=== PATIENT | female | born 1930 | race Caucasian/White ===

== ENCOUNTER 2018-02-27 13:18 | Emergency (ER) | payer OTHER ==
[~2018-02-27] VITALS: Ht 157.5 cm; Wt 56.2 kg
[~2018-02-27 13:18] MED LIST: ACET-1156 PO; ALBU0.084 NEB; ALBUAER3 IN; ALUM1SUS16 PO; ASPI81TA27 PO; ATOR1TAB PO; BISA-4 PR; CALC-315 PO; DOCU-137 PO; INSLANTI SC; INSLISPI SC; LOPE2TAB78 PO; MAGNSUS71 PO; MAX35OO OP; MULT-470 PO
[2018-02-27] MEDS ORDERED: DEXTROSE (50%) 50ML SYRG IV ONE (14:00)
[2018-02-27 14:53] LABS: Basophils # (auto) 0.1 uL; Basophils % (auto) 0.9 % (0.0-2.0); Eosinophils # (auto) 0.1 uL; Eosinophils % (auto) 0.6 % (0.0-7.0); Hematocrit 45.4 % (36.0-46.0); Hemoglobin 15.2 g/dL (12.2-16.2); Lymphocytes # (auto) 0.8 uL; Lymphocytes % (auto) 8.1 % (10.0-50.0); Mean Corpuscular Hemoglobin 31.8 pg (28.0-32.0); Mean Corpuscular Hgb Conc. 33.5 g/dL (32.0-36.0); Mean Corpuscular Volume 94.7 fL (80.0-100.0); Monocytes # (auto) 0.4 uL; Monocytes % (auto) 4.1 % (0.0-12.0); Neutrophils # (auto) 8.8 uL; Neutrophils % (auto) 86.3 % (37.0-80.0); Nucleated Red Blood Cells % 0.2 %; Platelet Count (auto) 117 10^3/uL (140-450); Red Blood Cells 4.79 10^6/uL (4.0-5.20); Red Cell Distribution Width 14.8 % (11.8-14.3); White Blood Cell 10.2 10^3/uL (4.4-10.8)
[2018-02-27 15:10] LABS: Albumin 3.1 g/dL (3.4-5.0); BUN/Creatinine Ratio 20.4; Calcium 9.2 mg/dL (8.5-10.1); Potassium 4.1 mmol/L (3.5-5.1)
[2018-02-27 15:17] LABS: Magnesium 2.2 mg/dL (1.6-2.6)
[2018-02-27 15:24] LABS: Bilirubin, Total 0.4 mg/dL (0.2-1.0); Total Protein 6.5 g/dL (6.4-8.2)
[2018-02-27] MEDS ORDERED: ENOXAPARIN SOD 60 MG/0.6 ML SYRINGE SC ONE (16:45)
[2018-02-27 17:05] VITALS: BP 138/67
== END 2018-02-27 18:08 | disposition home or self-care (01) ==
LOC: EDBD 13:18 → ER 13:27
DX: T38.3X1A Poisoning by insulin and oral hypoglycemic [antidiabetic] drugs, accidental (unintentional), initial encounter (principal); F17.210 Nicotine dependence, cigarettes, uncomplicated; I50.9 Heart failure, unspecified; J44.9 Chronic obstructive pulmonary disease, unspecified; E11.9 Type 2 diabetes mellitus without complications; I10 Essential (primary) hypertension; I25.2 Old myocardial infarction; R53.1 Weakness; R79.89 Other specified abnormal findings of blood chemistry; Z79.899 Other long term (current) drug therapy; Z79.4 Long term (current) use of insulin; Z79.82 Long term (current) use of aspirin
CPT/HCPCS: 36415; 80053; 82962; 83735; 84484; 85025; 93005; 96372; 96374; 99291; J1650

== ENCOUNTER 2018-08-26 10:59 | Observation (INO) | payer OTHER ==
[~2018-08-26] VITALS: Ht 165.1 cm; Wt 54.4 kg
[~2018-08-26 10:59] MED LIST changes: +CARV6.2551 PO; -DOCU-137 PO; +DOCU1CAP54 PO; +FURO40TA4 PO; +LOSA25TA40 PO; +POTA20TA53 PO
[2018-08-26] MEDS ORDERED: SODIUM CHLORIDE 0.9% 500 ML IVB ONE (11:54)
[2018-08-26 13:08] LABS: Basophils # (auto) 0.1 uL; Basophils % (auto) 0.5 % (0.0-2.0); Eosinophils # (auto) 0 uL; Eosinophils % (auto) 0.5 % (0.0-7.0); Hematocrit 39.6 % (36.0-46.0); Hemoglobin 12.8 g/dL (12.2-16.2); Lymphocytes # (auto) 0.3 uL; Lymphocytes % (auto) 3.1 % (10.0-50.0); Mean Corpuscular Hemoglobin 31.9 pg (28.0-32.0); Mean Corpuscular Hgb Conc. 32.2 g/dL (32.0-36.0); Mean Corpuscular Volume 98.9 fL (80.0-100.0); Monocytes # (auto) 0.4 uL; Monocytes % (auto) 4.1 % (0.0-12.0); Neutrophils # (auto) 9.1 uL; Neutrophils % (auto) 91.8 % (37.0-80.0); Nucleated Red Blood Cells % 0.1 %; Platelet Count (auto) 91 10^3/uL (140-450); Red Cell Distribution Width 14.3 % (11.8-14.3); White Blood Cell 9.9 10^3/uL (4.4-10.8)
[2018-08-26 13:28] LABS: Albumin 2.8 g/dL (3.4-5.0); BUN/Creatinine Ratio 29.6; Calcium 8.6 mg/dL (8.5-10.1); Potassium 4.4 mmol/L (3.5-5.1)
[2018-08-26 13:29] LABS: Lactic Acid w/Reflex 2.1 mmol/L (0.4-2.0)
[2018-08-26 13:30] LABS: Bilirubin, Total 0.9 mg/dL (0.2-1.0); Total Protein 6.5 g/dL (6.4-8.2)
[2018-08-26] MEDS ORDERED: InsuLIN REG 1unit/0.01ml Soln (100units/ml) SC ONE ×3 (14:00→20:00)
[2018-08-26] MEDS ORDERED: ASPirin-EC 81 mg tab PO ONE (15:45)
[2018-08-26 16:05] LABS: Urine Bacteria FEW /hpf (None Seen); Urine Blood Negative /uL (Negative); Urine Hyaline Cast MOD /lpf (0 - 2); Urine Mucus FEW (None Seen); Urine Specific Gravity 1.013 (1.001-1.035); Urine WBC 2 /hpf (0 - 5)
[2018-08-26] MEDS ORDERED: cefTRIAXone 1GM/50ML D5W 50 ML IV ONE (19:15)
[2018-08-26 21:41] VITALS: BP 117/50
== END 2018-08-26 21:51 | disposition short-term general hospital (02) | DRG 637 ==
LOC: ER 10:59 → EDBD 10:59 → OVERFLOW 11:00 → ER 21:51
PROVIDERS: ADMIT Family Medicine; ATTEND Family Medicine
DX: E10.65 Type 1 diabetes mellitus with hyperglycemia (principal); I50.43 Acute on chronic combined systolic (congestive) and diastolic (congestive) heart failure; N17.0 Acute kidney failure with tubular necrosis; I13.0 Hypertensive heart and chronic kidney disease with heart failure and stage 1 through stage 4 chronic kidney disease, or unspecified chronic kidney disease; N18.3 Chronic kidney disease, stage 3 (moderate); J44.9 Chronic obstructive pulmonary disease, unspecified; I25.10 Atherosclerotic heart disease of native coronary artery without angina pectoris; F17.210 Nicotine dependence, cigarettes, uncomplicated; E10.22 Type 1 diabetes mellitus with diabetic chronic kidney disease; D69.6 Thrombocytopenia, unspecified; S92.014D Nondisplaced fracture of body of right calcaneus, subsequent encounter for fracture with routine healing; Z99.81 Dependence on supplemental oxygen
CPT/HCPCS: 36415; 71045; 80053; 81001; 82962; 83605; 83735; 83880; 84484; 85025; 87040; 93005; 96372; 99291; G0378; J1815; J7030; J0696

== ENCOUNTER 2018-08-28 11:18 | Inpatient (IN) | payer OTHER ==
[~2018-08-28] VITALS: Ht 162.6 cm; Wt 54.6 kg
[2018-08-28] MEDS ORDERED: SODIUM CHLORIDE 0.9% 1,000 ML IV ONE (11:49)
[2018-08-28 12:31] LABS: Basophils # (auto) 0.1 uL; Basophils % (auto) 0.6 % (0.0-2.0); Eosinophils # (auto) 0.4 uL; Eosinophils % (auto) 4.3 % (0.0-7.0); Hematocrit 37.4 % (36.0-46.0); Hemoglobin 12.7 g/dL (12.2-16.2); Lymphocytes # (auto) 0.7 uL; Lymphocytes % (auto) 7.7 % (10.0-50.0); Mean Corpuscular Hemoglobin 31.8 pg (28.0-32.0); Mean Corpuscular Hgb Conc. 33.9 g/dL (32.0-36.0); Mean Corpuscular Volume 93.8 fL (80.0-100.0); Monocytes # (auto) 0.7 uL; Monocytes % (auto) 7.4 % (0.0-12.0); Neutrophils # (auto) 7.8 uL; Platelet Count (auto) 106 10^3/uL (140-450); Red Blood Cells 3.99 10^6/uL (4.0-5.20); Red Cell Distribution Width 13.6 % (11.8-14.3); White Blood Cell 9.7 10^3/uL (4.4-10.8)
[2018-08-28 12:36] LABS: Urine Bacteria NONE SEEN /hpf (None Seen); Urine Blood Negative /uL (Negative); Urine Mucus FEW (None Seen); Urine Specific Gravity 1.015 (1.001-1.035); Urine WBC 1 /hpf (0 - 5)
[2018-08-28 12:45] LABS: INR 1.03 (0.9-1.15); Partial Thromboplastin Time 26.3 sec (23.78-33.04)
[2018-08-28] MEDS ORDERED: FUROSEMIDE 20 MG/2 ML VIAL IV ONE (12:45)
[2018-08-28 12:49] LABS: Albumin 2.7 g/dL (3.4-5.0); BUN/Creatinine Ratio 38.5; Calcium 9.7 mg/dL (8.5-10.1); Potassium 3.6 mmol/L (3.5-5.1)
[2018-08-28 12:54] LABS: Bilirubin, Total 0.9 mg/dL (0.2-1.0); Total Protein 6.1 g/dL (6.4-8.2)
[2018-08-28] MEDS ORDERED: ENOXAPARIN SOD 60 MG/0.6 ML SYRINGE SC ONE (13:30)
[2018-08-28] MEDS ORDERED: MORPHINE SULFATE 4 MG/ML SYR/VIAL IV PRN ×2 (14:45)
[2018-08-28] MEDS ORDERED: ONDANSETRON HCL 4 MG/2 ML VIAL IV PRN (14:45)
[2018-08-28] MEDS ORDERED: NITROGLYCERIN 0.4 MG SL TAB SL PRN (14:45)
[2018-08-28] MEDS ORDERED: TEMAZEPAM 15 MG CAP PO PRN (14:45)
[2018-08-28] MEDS ORDERED: LORazepam 0.5 MG TAB PO PRN (14:45)
[2018-08-28] MEDS ORDERED: ACETAMINOPHEN 500 MG TAB PO PRN (14:45)
[2018-08-28 15:48] VITALS: BP 137/73
[2018-08-28 16:57] VITALS: BP 137/73
[2018-08-28] MEDS ORDERED: ALBUTEROL SULF 2.5 MG/0.5ML(0.5%) NEB SOLN NEB PRN (17:00)
[2018-08-28] MEDS: DOXYCYCLINE 100MG/250ML 250 ML IV SCH (17:14)
[2018-08-28] MEDS ORDERED: FUROSEMIDE 40 MG PO SCH (18:00)
[2018-08-28] MEDS: FUROSEMIDE 40 MG/4 ML VIAL IV SCH (18:00)
[2018-08-28] MEDS: IPRATROPIUM BROM 0.5 MG/2.5ML INH SOL NEB SCH (18:48)
[2018-08-28] MEDS: ALBUTEROL SULF 2.5 MG/0.5ML(0.5%) NEB SOLN NEB SCH (18:49)
[2018-08-28 20:42] VITALS: BP 137/73
[2018-08-28 22:00] VITALS: BP 141/73
[2018-08-28] MEDS ORDERED: PATIENTS OWN MEDICATION (Carvedilol 6.25 MG) PO SCH (22:00)
[2018-08-28] MEDS ORDERED: DOCUSATE SODIUM 100 MG PO SCH (22:00)
[2018-08-28] MEDS ORDERED: CALCIUM CARBONATE VITAMIN D PO SCH (22:00)
[2018-08-28] MEDS: SODIUM CHLOR 0.9% PF (SALINE LOCK) 10ML VIAL/SYR IV SCH (22:23)
[2018-08-28] MEDS: DOCUSATE SOD 100 MG CAP PO SCH (22:24)
[2018-08-28] MEDS: CARVEDILOL 3.125 MG TAB PO SCH (22:25)
[2018-08-28] MEDS: ATORVASTATIN 20 MG TAB PO SCH (22:25)
[2018-08-28] MEDS: POTASSIUM CHL 20 Meq TABLET PO SCH (22:25)
[2018-08-28] MEDS: CALCIUM W/VIT D (600MG/400IU) TAB PO SCH (22:26)
[2018-08-29] MEDS: IPRATROPIUM BROM 0.5 MG/2.5ML INH SOL NEB SCH ×4 (00:26→18:39)
[2018-08-29] MEDS: ALBUTEROL SULF 2.5 MG/0.5ML(0.5%) NEB SOLN NEB SCH ×4 (00:26→18:39)
[2018-08-29 06:08] LABS: Albumin 2.6 g/dL (3.4-5.0); BUN/Creatinine Ratio 37.2; Calcium 9.8 mg/dL (8.5-10.1); Potassium 3.6 mmol/L (3.5-5.1)
[2018-08-29 06:10] LABS: Bilirubin, Total 0.8 mg/dL (0.2-1.0); Total Protein 6.1 g/dL (6.4-8.2)
[2018-08-29 06:21] VITALS: BP 132/72
[2018-08-29] MEDS: DOXYCYCLINE 100MG/250ML 250 ML IV SCH ×2 (06:23→17:56)
[2018-08-29] MEDS: FUROSEMIDE 40 MG/4 ML VIAL IV SCH ×2 (06:23→18:38)
[2018-08-29] MEDS: SODIUM CHLOR 0.9% PF (SALINE LOCK) 10ML VIAL/SYR IV SCH ×3 (06:24→23:41)
[2018-08-29] MEDS: CALCIUM W/VIT D (600MG/400IU) TAB PO SCH ×3 (06:24→21:20)
[2018-08-29 09:00] VITALS: BP 159/67
[2018-08-29] MEDS ORDERED: LOSARTAN POTASSIUM 25 MG PO SCH (10:00)
[2018-08-29] MEDS ORDERED: ATORVASTATIN CALCIUM PO SCH (10:00)
[2018-08-29] MEDS ORDERED: LOSARTAN POTASSIUM 25 MG TAB PO SCH (10:00)
[2018-08-29] MEDS ORDERED: ENALAPRIL MALEATE 2.5 MG TAB PO SCH (10:00)
[2018-08-29] MEDS: HYDROcodone-ACET 5/325MG TAB PO PRN (10:14)
[2018-08-29] MEDS: ENOXAPARIN SOD 40 MG/0.4 ML SYRINGE SC SCH (10:14)
[2018-08-29] MEDS: ASPirin 81 mg TAB PO SCH (10:15)
[2018-08-29] MEDS: DOCUSATE SOD 100 MG CAP PO SCH ×2 (10:15→21:20)
[2018-08-29] MEDS: PANTOPRAZOLE 40 MG TAB PO SCH (10:15)
[2018-08-29] MEDS: MULTIPLE VITAMIN TAB PO SCH (10:16)
[2018-08-29] MEDS: POTASSIUM CHL 20 Meq TABLET PO SCH ×2 (10:16→21:19)
[2018-08-29] MEDS: CARVEDILOL 3.125 MG TAB PO SCH ×2 (10:17→23:39)
[2018-08-29] MEDS: INSULIN LANTUS (GLARGINE) 1 /0.01ml (100units/ml) SC SCH (10:21)
[2018-08-29] MEDS ORDERED: LOSARTAN POTASSIUM 25 MG TAB PO ONE (10:30)
[2018-08-29 13:00] VITALS: BP 129/58
[2018-08-29] MEDS ORDERED: DEXTROSE (50%) 50ML SYRG IV PRN (15:15)
[2018-08-29 17:00] VITALS: BP 119/65
[2018-08-29] MEDS: InsuLIN REG 1unit/0.01ml Soln (100units/ml) SC SCH ×2 (17:00→23:40)
[2018-08-29] MEDS: ACCU-CHEK COMFORT CURVE STRIP VI SCH ×2 (17:58→23:40)
[2018-08-29] MEDS: ATORVASTATIN 20 MG TAB PO SCH (21:19)
[2018-08-29 22:00] VITALS: BP 121/70
[2018-08-30] MEDS: IPRATROPIUM BROM 0.5 MG/2.5ML INH SOL NEB SCH ×4 (00:06→19:06)
[2018-08-30] MEDS: ALBUTEROL SULF 2.5 MG/0.5ML(0.5%) NEB SOLN NEB SCH ×4 (00:06→19:06)
[2018-08-30] MEDS: HYDROcodone-ACET 5/325MG TAB PO PRN ×2 (00:49→21:04)
[2018-08-30] MEDS: DOXYCYCLINE 100MG/250ML 250 ML IV SCH (04:21)
[2018-08-30 05:00] VITALS: BP 118/58
[2018-08-30] MEDS: FUROSEMIDE 40 MG/4 ML VIAL IV SCH ×2 (06:03→18:33)
[2018-08-30] MEDS: SODIUM CHLOR 0.9% PF (SALINE LOCK) 10ML VIAL/SYR IV SCH ×3 (06:03→22:00)
[2018-08-30] MEDS: CALCIUM W/VIT D (600MG/400IU) TAB PO SCH ×3 (06:04→21:00)
[2018-08-30] MEDS: ACCU-CHEK COMFORT CURVE STRIP VI SCH ×4 (06:04→21:01)
[2018-08-30] MEDS: InsuLIN REG 1unit/0.01ml Soln (100units/ml) SC SCH ×4 (06:23→21:02)
[2018-08-30 08:48] VITALS: BP 123/69
[2018-08-30] MEDS: CARVEDILOL 3.125 MG TAB PO SCH ×2 (10:00→21:01)
[2018-08-30] MEDS: LOSARTAN POTASSIUM 25 MG TAB PO SCH (10:00)
[2018-08-30] MEDS: AZITHROMYCIN 500MG/ 250ML 250 ML IV SCH (10:23)
[2018-08-30] MEDS: DOCUSATE SOD 100 MG CAP PO SCH ×2 (10:23→20:59)
[2018-08-30] MEDS: ASPirin 81 mg TAB PO SCH (10:23)
[2018-08-30] MEDS: POTASSIUM CHL 20 Meq TABLET PO SCH ×2 (10:24→21:00)
[2018-08-30] MEDS: ENOXAPARIN SOD 40 MG/0.4 ML SYRINGE SC SCH (10:24)
[2018-08-30] MEDS: MULTIPLE VITAMIN TAB PO SCH (10:24)
[2018-08-30] MEDS: PANTOPRAZOLE 40 MG TAB PO SCH (10:24)
[2018-08-30] MEDS: INSULIN LANTUS (GLARGINE) 1 /0.01ml (100units/ml) SC SCH (11:34)
[2018-08-30 13:06] VITALS: BP 134/70
[2018-08-30] MEDS ORDERED: SPIRONOLACTONE 25 MG TAB PO ONE (16:15)
[2018-08-30] MEDS ORDERED: LISINOPRIL 5 MG TAB PO ONE (16:15)
[2018-08-30 17:01] VITALS: BP 135/67
[2018-08-30] MEDS: ATORVASTATIN 20 MG TAB PO SCH (21:00)
[2018-08-30 22:00] VITALS: BP 110/48
[2018-08-31] MEDS: ALBUTEROL SULF 2.5 MG/0.5ML(0.5%) NEB SOLN NEB SCH ×4 (01:26→18:27)
[2018-08-31] MEDS: IPRATROPIUM BROM 0.5 MG/2.5ML INH SOL NEB SCH ×4 (01:26→18:27)
[2018-08-31 05:19] VITALS: BP 108/55
[2018-08-31] MEDS: InsuLIN REG 1unit/0.01ml Soln (100units/ml) SC SCH ×4 (05:30→22:30)
[2018-08-31] MEDS: CALCIUM W/VIT D (600MG/400IU) TAB PO SCH ×3 (05:40→22:50)
[2018-08-31] MEDS: FUROSEMIDE 40 MG/4 ML VIAL IV SCH (05:40)
[2018-08-31] MEDS: SODIUM CHLOR 0.9% PF (SALINE LOCK) 10ML VIAL/SYR IV SCH ×3 (05:41→22:00)
[2018-08-31] MEDS: ACCU-CHEK COMFORT CURVE STRIP VI SCH ×4 (05:41→22:00)
[2018-08-31 06:38] LABS: Basophils # (auto) 0.1 uL; Basophils % (auto) 0.7 % (0.0-2.0); Eosinophils # (auto) 0.9 uL; Eosinophils % (auto) 8.4 % (0.0-7.0); Hematocrit 39.8 % (36.0-46.0); Hemoglobin 13.1 g/dL (12.2-16.2); Lymphocytes # (auto) 1.3 uL; Lymphocytes % (auto) 12.7 % (10.0-50.0); Mean Corpuscular Hemoglobin 31.9 pg (28.0-32.0); Mean Corpuscular Hgb Conc. 32.8 g/dL (32.0-36.0); Mean Corpuscular Volume 97.5 fL (80.0-100.0); Monocytes % (auto) 9.7 % (0.0-12.0); Neutrophils # (auto) 7.3 uL; Neutrophils % (auto) 68.5 % (37.0-80.0); Nucleated Red Blood Cells % 0.1 %; Platelet Count (auto) 145 10^3/uL (140-450); Red Blood Cells 4.09 10^6/uL (4.0-5.20); White Blood Cell 10.7 10^3/uL (4.4-10.8)
[2018-08-31 07:13] LABS: Calcium 9.5 mg/dL (8.5-10.1); Potassium 4.9 mmol/L (3.5-5.1)
[2018-08-31 07:15] LABS: BUN/Creatinine Ratio 30.4
[2018-08-31 08:30] VITALS: BP 124/52
[2018-08-31 08:38] VITALS: BP 124/52
[2018-08-31] MEDS ORDERED: cefTRIAXone 1GM/50ML D5W 50 ML IV SCH (09:00)
[2018-08-31] MEDS: LOSARTAN POTASSIUM 25 MG TAB PO SCH (10:00)
[2018-08-31] MEDS: INSULIN LANTUS (GLARGINE) 1 /0.01ml (100units/ml) SC SCH (10:00)
[2018-08-31] MEDS: AZITHROMYCIN 500MG/ 250ML 250 ML IV SCH (10:00)
[2018-08-31] MEDS: ENOXAPARIN SOD 40 MG/0.4 ML SYRINGE SC SCH (10:03)
[2018-08-31] MEDS: ASPirin 81 mg TAB PO SCH (10:03)
[2018-08-31] MEDS: PANTOPRAZOLE 40 MG TAB PO SCH (10:04)
[2018-08-31] MEDS: LISINOPRIL 5 MG TAB PO SCH (10:04)
[2018-08-31] MEDS: DOCUSATE SOD 100 MG CAP PO SCH ×2 (10:04→22:49)
[2018-08-31] MEDS: MULTIPLE VITAMIN TAB PO SCH (10:04)
[2018-08-31] MEDS: SPIRONOLACTONE 25 MG TAB PO SCH (10:04)
[2018-08-31] MEDS: CARVEDILOL 3.125 MG TAB PO SCH ×2 (10:05→22:00)
[2018-08-31] MEDS: POTASSIUM CHL 20 Meq TABLET PO SCH ×2 (10:05→22:50)
[2018-08-31] MEDS: CEPHALEXIN 250 MG CAP PO SCH ×2 (12:15→17:14)
[2018-08-31] MEDS: AZITHROMYCIN 250 MG TAB PO SCH (12:15)
[2018-08-31 12:58] VITALS: BP 111/79
[2018-08-31 17:02] VITALS: BP 135/68
[2018-08-31] MEDS: FUROSEMIDE 40 MG TAB PO SCH (17:14)
[2018-08-31 22:00] VITALS: BP 113/52
[2018-08-31] MEDS: ATORVASTATIN 20 MG TAB PO SCH (22:50)
[2018-08-31] MEDS: ASCORBIC ACID 500 MG TAB PO SCH (22:50)
[2018-09-01] MEDS: CEPHALEXIN 250 MG CAP PO SCH ×3 (00:20→12:15)
[2018-09-01] MEDS: IPRATROPIUM BROM 0.5 MG/2.5ML INH SOL NEB SCH ×3 (00:27→11:41)
[2018-09-01] MEDS: ALBUTEROL SULF 2.5 MG/0.5ML(0.5%) NEB SOLN NEB SCH ×3 (00:27→11:41)
[2018-09-01 02:58] VITALS: BP 113/52
[2018-09-01 05:00] VITALS: BP 138/76
[2018-09-01] MEDS: SODIUM CHLOR 0.9% PF (SALINE LOCK) 10ML VIAL/SYR IV SCH ×2 (05:53→14:00)
[2018-09-01] MEDS: FUROSEMIDE 40 MG TAB PO SCH (05:54)
[2018-09-01] MEDS: CALCIUM W/VIT D (600MG/400IU) TAB PO SCH ×2 (05:55→14:00)
[2018-09-01] MEDS: ACCU-CHEK COMFORT CURVE STRIP VI SCH ×2 (05:55→11:29)
[2018-09-01] MEDS: InsuLIN REG 1unit/0.01ml Soln (100units/ml) SC SCH ×2 (06:35→12:33)
[2018-09-01 08:30] VITALS: BP 133/63
[2018-09-01 09:00] VITALS: BP 133/63
[2018-09-01] MEDS: POTASSIUM CHL 20 Meq TABLET PO SCH (09:29)
[2018-09-01] MEDS: ENOXAPARIN SOD 40 MG/0.4 ML SYRINGE SC SCH (09:29)
[2018-09-01] MEDS: MULTIPLE VITAMIN TAB PO SCH (09:30)
[2018-09-01] MEDS: AZITHROMYCIN 250 MG TAB PO SCH (09:30)
[2018-09-01] MEDS: LISINOPRIL 5 MG TAB PO SCH (09:30)
[2018-09-01] MEDS: DOCUSATE SOD 100 MG CAP PO SCH (09:30)
[2018-09-01] MEDS: ASPirin 81 mg TAB PO SCH (09:30)
[2018-09-01] MEDS: PANTOPRAZOLE 40 MG TAB PO SCH (09:30)
[2018-09-01] MEDS: ASCORBIC ACID 500 MG TAB PO SCH (09:30)
[2018-09-01] MEDS: CARVEDILOL 3.125 MG TAB PO SCH (09:31)
[2018-09-01] MEDS: SPIRONOLACTONE 25 MG TAB PO SCH (09:31)
[2018-09-01] MEDS ORDERED: MULTIPLE VITAMIN TAB PO SCH (10:00)
[2018-09-01 12:51] VITALS: BP 136/78
[2018-09-01 13:00] VITALS: BP 136/78
== END 2018-09-01 15:46 | DRG 280 ==
LOC: ER 11:18 → EDBD 11:18 → TELE 11:19 → TELE-WESTW 15:58
PROVIDERS: ADMIT Internal Medicine; ATTEND Family Medicine
DX: I21.4 Non-ST elevation (NSTEMI) myocardial infarction (principal); I50.43 Acute on chronic combined systolic (congestive) and diastolic (congestive) heart failure; J18.1 Lobar pneumonia, unspecified organism; J96.20 Acute and chronic respiratory failure, unspecified whether with hypoxia or hypercapnia; J96.10 Chronic respiratory failure, unspecified whether with hypoxia or hypercapnia; J44.0 Chronic obstructive pulmonary disease with (acute) lower respiratory infection; J44.9 Chronic obstructive pulmonary disease, unspecified; E11.9 Type 2 diabetes mellitus without complications; I25.10 Atherosclerotic heart disease of native coronary artery without angina pectoris; I11.0 Hypertensive heart disease with heart failure; E78.00 Pure hypercholesterolemia, unspecified; F17.210 Nicotine dependence, cigarettes, uncomplicated; R54 Age-related physical debility; Z66 Do not resuscitate; I25.2 Old myocardial infarction; Z99.81 Dependence on supplemental oxygen
CPT/HCPCS: 36415; 51702; 71045; 71046; 80048; 80053; 81001; 82550; 82962; 83880; 84484; 85025; 85610; 85730; 87040; 87070; 87081; 87205; 93005; 94640; 96361; 96372; 96374; G0378; J1815; J3490

== ENCOUNTER 2018-09-02 10:42 | Emergency (ER) | payer OTHER ==
[~2018-09-02] VITALS: Ht 160 cm; Wt 63.5 kg
[2018-09-02 11:32] LABS: Basophils # (auto) 0 uL; Basophils % (auto) 0.4 % (0.0-2.0); Eosinophils # (auto) 0 uL; Eosinophils % (auto) 0.3 % (0.0-7.0); Hematocrit 37.6 % (36.0-46.0); Lymphocytes # (auto) 0.4 uL; Lymphocytes % (auto) 4.1 % (10.0-50.0); Mean Corpuscular Hemoglobin 31.4 pg (28.0-32.0); Mean Corpuscular Volume 98.1 fL (80.0-100.0); Monocytes # (auto) 0.6 uL; Monocytes % (auto) 5.5 % (0.0-12.0); Neutrophils # (auto) 9.4 uL; Neutrophils % (auto) 89.7 % (37.0-80.0); Nucleated Red Blood Cells % 0.1 %; Platelet Count (auto) 187 10^3/uL (140-450); Red Blood Cells 3.83 10^6/uL (4.0-5.20); Red Cell Distribution Width 14.6 % (11.8-14.3); White Blood Cell 10.5 10^3/uL (4.4-10.8)
[2018-09-02 11:47] LABS: Albumin 2.5 g/dL (3.4-5.0); Calcium 9.3 mg/dL (8.5-10.1); Magnesium 2.3 mg/dL (1.6-2.6); Potassium 5.3 mmol/L (3.5-5.1)
[2018-09-02 11:56] LABS: Bilirubin, Total 0.7 mg/dL (0.2-1.0); Total Protein 6.1 g/dL (6.4-8.2)
[2018-09-02] MEDS ORDERED: SODIUM CHLORIDE 0.9% 1,000 ML IV ONE ×2 (12:15→16:45)
[2018-09-02] MEDS ORDERED: InsuLIN REG 1unit/0.01ml Soln (100units/ml) IV ONE ×2 (15:30→18:00)
[2018-09-02] MEDS ORDERED: SODIUM CHLORIDE 0.9% 250 ML IV ONE (16:45)
[2018-09-02 22:47] VITALS: BP 101/49
== END 2018-09-02 22:54 | disposition home or self-care (01) ==
LOC: EDBD 10:42 → ER 10:52
DX: E11.65 Type 2 diabetes mellitus with hyperglycemia (principal); G93.41 Metabolic encephalopathy; E11.21 Type 2 diabetes mellitus with diabetic nephropathy; E87.5 Hyperkalemia; I25.10 Atherosclerotic heart disease of native coronary artery without angina pectoris; J44.9 Chronic obstructive pulmonary disease, unspecified; I11.0 Hypertensive heart disease with heart failure; I50.9 Heart failure, unspecified; I25.2 Old myocardial infarction; F17.210 Nicotine dependence, cigarettes, uncomplicated; Z79.4 Long term (current) use of insulin; Z79.82 Long term (current) use of aspirin; Z79.899 Other long term (current) drug therapy
CPT/HCPCS: 36415; 71045; 80053; 82962; 83735; 84443; 85025; 93005; 94761; 96361; 96374; 96376; 99285; J1815; J7030